=== PATIENT | female | born 1935 | race Caucasian/White ===

== ENCOUNTER → 2016-10-01 | Outpatient (CLI) | payer MEDICARE, OTHER ==
[~2016-10-01] MED LIST: CALAN SR,COVER240 MG PO; CENTRUM SILVER1 EAC4 PO; Calcium Carbonate,Ca PO; Centrum Silver,Certa PO; Fosamax PO; Hyzaar 50-12.5 PO; Keflex PO; LIPITOR10 MG PO; LO-DOSE ASPIRIN81 M2 PO; LOSARTAN POTAS100 MG PO
== END | disposition home or self-care (01) ==
LOC: CDC 08:37
DX: I49.9 Cardiac arrhythmia, unspecified (principal); R22.0 Localized swelling, mass and lump, head
CPT/HCPCS: 93000

== ENCOUNTER 2016-10-19 06:57 | Day surgery (SDC) | payer OTHER ==
[~2016-10-19] VITALS: Ht 167.6 cm; Wt 60.3 kg
[2016-10-19 07:37] VITALS: BP 163/69
[2016-10-19] MEDS ORDERED: TRAMADOL HCL50 MG PO (09:51)
== END 2016-10-19 10:55 | disposition home or self-care (01) ==
LOC: SDC 06:57
PROC: 0JB10ZZ Excision of Face Subcutaneous Tissue and Fascia, Open Approach (ICD-10-PCS; principal; 2016-10-19)
DX: C79.89 Secondary malignant neoplasm of other specified sites (principal); I10 Essential (primary) hypertension; Z85.528 Personal history of other malignant neoplasm of kidney; Z82.0 Family history of epilepsy and other diseases of the nervous system; Z80.42 Family history of malignant neoplasm of prostate
CPT/HCPCS: 88305; 88341 TC; 88342 TC; J0690; J2405; J3010

== ENCOUNTER → 2016-12-13 | Outpatient (CLI) | payer OTHER ==
[~2016-12-13] MED LIST changes: +TRAMADOL HCL50 MG PO
== END | disposition home or self-care (01) ==
LOC: NUC 08:43
DX: M89.8X8 Other specified disorders of bone, other site (principal); M16.12 Unilateral primary osteoarthritis, left hip; M15.0 Primary generalized (osteo)arthritis; C79.9 Secondary malignant neoplasm of unspecified site
CPT/HCPCS: 78306; A9503